=== PATIENT | female | born 1955 | race Caucasian/White ===

== ENCOUNTER 2017-10-29 10:58 | Emergency (ER) | payer MEDICARE ==
[2017-10-29] MEDS ORDERED: NS 0.9% 1000 ML* 1,000 ML IV ONE (11:12)
--- NOTE | 2017-10-29 11:37 | RAD ---
Indication: Syncopal episode/fall. Comparison: No relevant prior exams available on the [facility] PACS for comparison. Technique: Noncontrast CT vertex of skull through foramen magnum. Report: The sulci, ventricles, and basal cisterns are normal for age. Greene matter white matter differentiation is preserved without evidence for edema. No intra or extra axial hemorrhage, mass, or fluid collection detected. Unremarkable visualized orbital contents. Unremarkable calvarium and skull base. Unremarkable scalp. The visualized paranasal sinuses and mastoid air spaces are clear. IMPRESSION: #. Negative unenhanced head CT.
--- NOTE | 2017-10-29 11:56 | ED ---
Syncope/Near Syncope - HPI Summary HPI Summary: This is scribe Princess Lundberg documenting for attending Nehemiah Pearl MD. Pt is a 62 y/o female who presents to [facility] s/p syncope at 21:00 last night. She states the last thing she can remember is getting ready for bed in the dark. Pt reports waking up on the floor at 2:00, then going to bed right after. When she woke up today, she had pain of her left ribs, upper left arm, and left side of head. She currently describes her left rib pain as a 8/10 in severity. Pt has a PMHx of olivopontocerebellar atrophy, and states that turning off the lights causes her balance to worsen. She states she has been under stress lately, and hasnt been getting proper sleep. Pt denies any headache, CP, or palpitations before or after the syncopal incident. She also had 1 alcoholic drink with dinner last night, but denies drinking alcohol daily. Pt denies smoking or drug use. PMHx HTN and HLD. - History Of Current Complaint Chief Complaint: EDSyncope Time Seen by Provider: 10/29/17 11:12 Hx Obtained From: Patient Onset/Duration: Sudden Onset, Lasting Days - 21:00 last night, Resolved Context: Unwitnessed, Loss Of Consciousness Activity At Onset: Unknown Associated Head Trauma: Yes Aggravating Factor(s): Other - Lights off Alleviating Factor(s): Nothing Associated Signs And Symptoms: Pain - Left ribcage, left arm, left head Related History: Similar Episode/Dx as - olivopontocerebellar atrophy - Allergies/Home Medications Allergies/Adverse Reactions: Allergies Allergy/AdvReac Type Severity Reaction Status Date / Time Penicillins Allergy Rash Verified 10/29/17 11:09 PMH/Surg Hx/FS Hx/Imm Hx Cardiovascular History: Reports: Hx Hypercholesterolemia, Hx Hypertension Neurological History: Reports: Other Neuro Impairments/Disorders - olivopontocerebellar atrophy Infectious Disease History: No Infectious Disease History: Denies: Traveled Outside the [place] in Last 30 Days - Family History Known Family History: Positive: Other - cancer - Social History Alcohol Use: Occasionally Hx Substance Use: No Substance Use Type: Reports: None Smoking Status (MU): Former Smoker Review of Systems Negative: Palpitations, Chest Pain Positive: Myalgia - Left ribcage, left upper arm, left head Positive: Syncope. Negative: Headache All Other Systems Reviewed And Are Negative: Yes Physical Exam - Summary Physical Exam Summary: VITAL SIGNS: Reviewed. GENERAL: Patient is a well-developed and nourished FEMALE who is lying comfortable in the stretcher. Patient is not in any acute respiratory distress. HEAD AND FACE: No signs of trauma. No ecchymosis, hematomas or skull depressions. No sinus tenderness. EYES: PERRLA, EOMI x 2, No injected conjunctiva, no nystagmus. EARS: Hearing grossly intact. Ear canals and tympanic membranes are within normal limits. MOUTH: Oropharynx within normal limits. NECK: Supple, trachea is midline, no adenopathy, no JVD, no carotid bruit, no c- spine tenderness, neck with full ROM. CHEST: Symmetric, no tenderness at palpation LUNGS: Clear to auscultation bilaterally. No wheezing or crackles. CVS: Regular rate and rhythm, S1 and S2 present, no murmurs or gallops appreciated. ABDOMEN: Soft. No signs of distention. No rebound no guarding, and no masses palpated. Bowel sounds are normal. Tenderness of left ribcage mid-axillary life. EXTREMITIES: FROM in all major joints, no edema, no cyanosis or clubbing. Tenderness of left shoulder. Good ROM, secondary to pain. No deformity. NEURO: Alert and oriented x 3. No acute neurological deficits. Speech is normal and follows commands. SKIN: Dry and warm. No ecchymosis. GCS: 15 Triage Information Reviewed: Yes Vital Signs On Initial Exam: Initial Vitals Temp Pulse Resp BP Pulse Ox 98.7 F 72 16 128/76 95 10/29/17 11:02 10/29/17 11:02 10/29/17 11:02 10/29/17 11:02 10/29/17 11:02 Vital Signs Reviewed: Yes Diagnostics - Vital Signs Vital Signs Temp Pulse Resp BP Pulse Ox 10/29/17 11:02 98.7 F 72 16 128/76 95 - Laboratory Result Diagrams: 10/29/17 11:58 10/29/17 11:58 Lab Statement: Any lab studies that have been ordered have been reviewed, and results considered in the medical decision making process. - Radiology Shoulder XR Xray Interpretation: No Acute Changes - :18 No radiographic evidence for traumatic injury of the LEFT shoulder. ED physician reviewed radiology report. Radiology Interpretation Completed By: Radiologist Ribs XR Xray Interpretation: No Acute Changes - 11:18 No evidence for LEFT rib fracture or acute intrathoracic disease. ED physician reviewed radiology report. Radiology Interpretation Completed By: Radiologist CXR Xray Interpretation: No Acute Changes - 11:13 No evidence for LEFT rib fracture or acute intrathoracic disease. ED physician reviewed radiology report. Radiology Interpretation Completed By: Radiologist - CT Brain CT CT Interpretation: No Acute Changes - 11:[address] ED physician reviewed radiology report. CT Interpretation Completed By: Radiologist - EKG 11:58 Cardiac Rate: NL - 67 bpm EKG Rhythm: Sinus Rhythm ST Segment: Normal EKG Interpretation: T-wave inversion in V1-V3 Re-Evaluation - Re-Evaluation First Eval Re-Evaluation Time: 12:31 Change: Unchanged Comment: Pt wants to leave AMA. Course/Dx Assessment/Plan: This patient is a 62-year-old female who presents to the emergency department with chief complaint of having a syncopal episode with positive loss of consciousness. She reports no chest pain shortness of breath or palpitations. Positive left rib cage pain and left shoulder pain. Shoulder x-ray shows no evidence of fracture or dislocation. Review x-ray shows no evidence a left wrist fracture or acute intrathoracic disease. Chest x-ray shows no acute pathology. Head CT impression: No acute intracranial pathology. Blood test results without any significant abnormality except for increased AST and AST. I offered the patient admission for observation since the patient had a syncopal episode. The patient refuses. She will sign an AGAINST MEDICAL ADVICE. I extensively discussed with the patient the benefits and risk of leaving AMA. I also discussed the alternatives to leaving AMA, however, the patient still insist to leave the hospital AMA.. The primary nurse and the charge nurse also strongly recommended that the patient should not leave AMA. Patient understands the risk of leaving AMA, which includes but is not restricted to . Patient is Alert and oriented times three and patient verbalizes understanding. Patient has full capacity and is cognitively intact. Patient signed the AMA form. Patient was also advised to return to ED if he changes his mind or if the symptoms worsen or other symptoms appear. Patient understands and agrees. Patient was given a prescription for ibuprofen and Percocet for the pain. - Diagnoses Provider Diagnoses: Syncope Discharge - Sign-Out/Discharge Documenting (check all that apply): Patient Departure - Discharge - Discharge Plan Condition: Stable Disposition: HOME Prescriptions: Ibuprofen TAB* [Motrin TAB* 800 MG] 800 mg PO Q6H #30 tab oxyCODONE/Acetamin 5/325 MG* [Percocet 5/325 TAB*] 1 tab PO Q4H PRN #10 tab MDD 4 PRN Reason: Pain Patient Education Materials: Syncope (ED) Referrals: [facility] PHYSICIAN REFERRAL [Outside] - 3 Days Additional Instructions: RETURN TO THE ED FOR ANY WORSENING OR NEW SYMPTOMS. - Billing Disposition and Condition Condition: STABLE Disposition: Home
[2017-10-29 12:07] LABS: ABS Basophils 0 10^3/ul (0-0.2); ABS Eosinophils 0 10^3/ul (0-0.6); ABS Lymphocytes 1.6 10^3/ul (1.0-4.8); ABS Monocytes 0.4 10^3/ul (0-0.8); ABS Neutrophils 2.5 10^3/ul (1.5-7.7); ABS Nucleated RBC 0 10^3/ul; Eosinophil % 0.9 % (0-6); Hematocrit 39 % (35-47); Hemoglobin 13.9 g/dl (12.0-16.0); Lymphocyte % 34.3 % (25-47); Mean Corpuscular HGB Conc 35 g/dl (31-36); Mean Corpuscular Hemoglobin 33 pg (27-31); Mean Corpuscular Volume 92 fL (80-97); Nucleated Red Blood Cells % 0; Platelet Count 178 10^3/ul (150-450); Red Blood Count 4.26 10^6/ul (4.00-5.40); Red Cell Distribution Width 12 % (10.5-15); White Blood Count 4.5 10^3/ul (3.5-10.8)
--- NOTE | 2017-10-29 12:07 | RAD ---
Indication: LEFT shoulder and rib pain post fall. Post bilateral mastectomy. Comparison: No relevant prior exams available on the [facility] PACS for comparison. Technique: Internal rotation AP, external rotation Grashey, scapular Y, axillary views LEFT shoulder Report: Negative for fracture. Normal acromioclavicular and glenohumeral joint alignment. Unremarkable soft tissue contours. IMPRESSION: #. No radiographic evidence for traumatic injury of the LEFT shoulder.
[2017-10-29 12:24] LABS: EGFR Non-African American 61.3 (>60)
--- NOTE | 2017-10-29 12:24 | RAD ---
Indication: Fall with LEFT rib pain. Comparison: No relevant prior exams available on the [facility] [place] for [place]. Technique: Dual energy PA and lateral chest views. 4 view LEFT rib series. Report: Moderate prominence of the basilar interstitial markings. No focal pulmonary consolidation, pleural effusion, pneumothorax. The heart, pulmonary vasculature, and mediastinal contours are unremarkable. Negative for LEFT rib fracture. Unremarkable soft tissue contours and osseous structures accounting for breast reconstruction. IMPRESSION: #. No evidence for LEFT rib fracture or acute intrathoracic disease.
--- NOTE | 2017-10-29 12:24 | RAD ---
Indication: Fall with LEFT rib pain. Comparison: No relevant prior exams available on the [facility] PACS for comparison. Technique: Dual energy PA and lateral chest views. 4 view LEFT rib series. Report: Moderate prominence of the basilar interstitial markings. No focal pulmonary consolidation, pleural effusion, pneumothorax. The heart, pulmonary vasculature, and mediastinal contours are unremarkable. Negative for LEFT rib fracture. Unremarkable soft tissue contours and osseous structures accounting for breast reconstruction. IMPRESSION: #. No evidence for LEFT rib fracture or acute intrathoracic disease.
[2017-10-29] MEDS ORDERED: Ketorolac INJ* 30 MG/ML 1 ML VIAL IV PUSH PRN (12:35)
[2017-10-29] MEDS ORDERED: oxyCODONE/Acetamin 5/325 MG* TAB PO ONE (12:35)
[2017-10-29] MEDS ORDERED: Ketorolac INJ* 30 MG/ML 1 ML VIAL ONE (12:38)
[2017-10-29 13:20] VITALS: BP 111/60
== END 2017-10-29 13:19 | disposition home or self-care (01) ==
LOC: ED 10:58
DX: R55 Syncope and collapse (principal); R07.81 Pleurodynia; M79.622 Pain in left upper arm; G23.8 Other specified degenerative diseases of basal ganglia; Z88.0 Allergy status to penicillin; Z87.891 Personal history of nicotine dependence
CPT/HCPCS: 36415; 70450; 71046; 80053; 80320; 82140; 83605; 83735; 83880; 84443; 84484; 85025; 93005; 96374; 99283; A9270-GY; G0480; J1885